=== PATIENT | female | born 1995 | race Hispanic/Latino ===

== ENCOUNTER 2017-01-11 15:37 | Inpatient (IN) | payer OTHER ==
--- NOTE | 2017-01-11 15:54 | ED PDOC ---
Arrival/HPI - General Time Seen by Provider: 01/11/17 15:45 Historian: Patient - History of Present Illness Narrative History of Present Illness (Text): 01/11/17 15:45 Renetta Maldonado is a 21 year old female, who is brought into the emergency department via EMS, due to an intentional overdose prior to arrival. 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 Patient reports she received that Xanax from a friend and admits to drinking three glasses of wine along with the intake of Xanax. Currently patient denies any chest pain, shortness of breath, nausea, vomiting, diarrhea, abdominal pain, dizziness, or other complaints. PMD: Time/Duration: Prior to Arrival (30 minutes) Symptom Onset: Sudden Symptom Course: Unchanged Activities at Onset: Emotional Upset Context: Home Past Medical History - Provider Review Nursing Documentation Reviewed: Yes Family/Social History - Physician Review Nursing Documentation Reviewed: Yes Family/Social History: Unknown Family HX Allergies/Home Meds Allergies/Adverse Reactions: Allergies No Known Allergies Allergy (Verified 01/11/17 16:10) Home Medications: Home Meds Medication Instructions Recorded Confirmed No Known Home Med 01/11/17 01/11/17 Review of Systems - Review of Systems Systems not reviewed;Unavailable: Intoxicated (Intentional overdose. Intake of 8 Xanax and 3 glasses of wine.) Constitutional: absent: Fevers Respiratory: absent: SOB Cardiovascular: absent: Chest Pain Gastrointestinal: absent: Abdominal Pain, Diarrhea, Vomiting Genitourinary Female: absent: Dysuria, Frequency Neurological: absent: Headache, Dizziness Psychiatric: Suicidal Ideation Physical Exam Vital Signs Reviewed: Yes Vital Signs Temp Pulse Resp BP Pulse Ox 01/11/17 21:47 78 16 93/59 L 100 01/11/17 19:09 78 20 90/55 L 100 01/11/17 17:50 75 16 96/56 L 97 01/11/17 15:58 97.7 F 92 H 20 107/59 L 100 Temperature: Afebrile Blood Pressure: Normal Pulse: Tachycardic Respiratory Rate: Normal Appearance: Positive for: Well-Appearing, Non-Toxic, Comfortable Pain Distress: None Mental Status: Positive for: Alert and Oriented X 3 - Systems Exam Head: Present: Atraumatic, Normocephalic Pupils: Present: Other (5mm non-reactive) Extroacular Muscles: Present: EOMI Conjunctiva: Present: Normal Mouth: Present: Moist Mucous Membranes Neck: Present: Normal Range of Motion Respiratory/Chest: Present: Clear to Auscultation, Good Air Exchange. No: Respiratory Distress, Accessory Muscle Use Cardiovascular: Present: Regular Rate and Rhythm, Normal S1, S2. No: Murmurs Abdomen: Present: Normal Bowel Sounds. No: Tenderness, Distention, Peritoneal Signs Back: Present: Normal Inspection Upper Extremity: Present: Normal Inspection. No: Cyanosis, Edema Lower Extremity: Present: Normal Inspection. No: Edema Neurological: Present: GCS=15, CN II-XII Intact. No: Speech Normal (slurred speech) Skin: Present: Warm, Dry, Normal Color. No: Rashes Psychiatric: Present: Alert, Oriented x 3, Normal Insight, Normal Concentration , Suicidal Ideation, Other (drowsiness) Medical Decision Making ED Course and Treatment: 01/11/17 15:45 Impression: 21 year old female with emotional upset and SI. Admits to taking 8 Xanax and 3 glasses of ETOH (wine) Plan: -- EKG -- Chest X-ray -- Labs -- Urinalysis -- Reassess and disposition Progress Notes: EKG: Ordered, reviewed, and independently interpreted the EKG. Rate : 92 BPM Rhythm : NSR Interpretation : T-wave inversion and anterior leads. Comparison : No previous EKG for comparison. 01/11/17 17:58 Patient is medically cleared for psych evaluation. Alcohol level mildly elevated. BP stable. Patient not complaining go dizziness or lightheadedness. 01/11/17 22:36 Patient was accepted to Psych and voluntarily signed in. Dr. Lu Child accepted the case. - Lab Interpretations Lab Results: 01/11/17 16:12 01/11/17 16:12 Lab Results 01/11/17 16:12: Alcohol, Quantitative 37 H 01/11/17 16:12: Salicylates < 1 L, Acetaminophen < 10.0 L 01/11/17 16:12: Sodium 141, Potassium 3.7, Chloride 106, Carbon Dioxide 23, Anion Gap 16, BUN 11, Creatinine 0.6, Est GFR ( Amer) > 60, Est GFR (Non- Af Amer) > 60, Random Glucose 76, Calcium 9.3, Total Bilirubin 1.1, AST 27, ALT 20, Alkaline Phosphatase 46, Total Protein 8.0, Albumin 4.6, Globulin 3.3, Albumin/Globulin Ratio 1.4 01/11/17 16:12: WBC 5.6, RBC 4.75, Hgb 13.8, Hct 38.7, MCV 81.5, MCH 29.1, MCHC 35.7, RDW 12.6, Plt Count 255, MPV 8.9, Gran % 61.1, Lymph % (Auto) 29.9, [place] % (Auto) 6.8 H, Eos % (Auto) 1.8, Baso % (Auto) 0.4, Gran # 3.41, Lymph # 1.7, [place] # 0.4, Eos # 0.1, Baso # 0.02 - RAD Interpretation Radiology Orders: 01/11/17 15:55 CHEST PORTABLE [RAD] Stat - EKG Interpretation Interpreted by ED Physician: Yes Type: 12 lead EKG - Medication Orders Current Medication Orders: Discontinued Medications Sodium Chloride (Sodium Chloride 0.9%) 1,000 mls @ 999 mls/hr IV .Q1H1M STA Stop: 01/11/17 17:33 Last Admin: 01/11/17 17:05 Dose: 999 mls/hr Sodium Chloride (Sodium Chloride 0.9%) 1,000 mls @ 999 mls/hr IV .Q1H1M STA Stop: 01/11/17 21:47 Last Admin: 01/11/17 20:54 Dose: 999 mls/hr - Scribe Statement The provider has reviewed the documentation as recorded by the Scribe 01/11/2017 Rema Kan Provider Scribe Attestation: All medical record entries made by the Scribe were at my direction and personally dictated by me. I have reviewed the chart and agree that the record accurately reflects my personal performance of the history, physical exam, medical decision making, and the department course for this patient. I have also personally directed, reviewed, and agree with the discharge instructions and disposition. Disposition/Present on Arrival - Present on Arrival Any Indicators Present on Arrival: No - Disposition Have Diagnosis and Disposition been Completed?: Yes Diagnosis: Suicide attempt Disposition: HOSPITALIZED Disposition Time: 22:37 Patient Plan: Admission Condition: FAIR Referrals: Laron Landis MD [Primary Care Provider] - Follow up with primary
[2017-01-11 15:55] VITALS: BMI 23.3
[2017-01-11] MEDS ORDERED: Sodium Chloride 0.9% 1,000 ML IV STA ×2 (16:33→20:47)
[2017-01-11 16:41] LABS: BASO # 0.02 K/mm3 (0.0-2.0); BASO % 0.4 % (0.0-3.0); EOS # 0.1 (0.0-0.7); EOS % 1.8 % (1.5-5.0); GRAN # 3.41 (1.4-6.5); GRAN % 61.1 % (50.0-68.0); HEMATOCRIT 38.7 % (36.0-48.0); LYMPH # 1.7 (1.2-3.4); LYMPH % 29.9 % (22.0-35.0); MEAN CELL VOLUME 81.5 fl (80.0-105.0); MEAN CORPUSCULAR HEMOGLOBIN 29.1 pg (25.0-35.0); MEAN CORPUSCULAR HGB CONC 35.7 g/dl (31.0-37.0); MEAN PLATELET VOLUME 8.9 fl (7.0-11.0); MONO # 0.4 (0.1-0.6); MONO % 6.8 % (1.0-6.0); RED CELL DISTRIBUTION WIDTH 12.6 % (11.5-14.5); WHITE BLOOD COUNT 5.6 10^3/ul (4.5-11.0)
[2017-01-11 17:24] LABS: ALB/GLOB RATIO 1.4 (1.1-1.8); ALKALINE PHOSPHATASE 46 U/L (38-126); ALT/SGPT 20 U/L (7-56); AST/SGOT 27 U/L (14-36); BILIRUBIN,TOTAL 1.1 mg/dL (0.2-1.3); BLOOD UREA NITROGEN 11 mg/dL (7-21); CALCIUM 9.3 mg/dL (8.4-10.5); CARBON DIOXIDE 23 mmol/L (21-33); CHLORIDE 106 mmol/L (95-110); GFR AFRICAN-AMERICAN > 60; GLUCOSE,RANDOM 76 mg/dL (70-110); POTASSIUM 3.7 mmol/L (3.6-5.0); SODIUM 141 mmol/L (132-148)
--- NOTE | 2017-01-11 17:46 | CARD ---
APPROVED REPORT EKG Measurement Heart [id number] <Conclusion> Normal sinus rhythm Possible Left atrial enlargement Nonspecific T wave abnormality Prolonged QT Abnormal ECG
[2017-01-11 23:24] LABS: PH,URINE 5.5 (4.7-8.0); URINE BILIRUBIN NEGATIVE (NEGATIVE); URINE BLOOD NEGATIVE (NEGATIVE); URINE GLUCOSE (UA) NEGATIVE (NEGATIVE); URINE KETONE NEGATIVE (NEGATIVE); URINE LEUKOCYTE ESTERASE SMALL Leu/uL (NEGATIVE); URINE PROTEIN NEGATIVE mg/dL (<30 mg/dL); URINE UROBILINOGEN 0.2 E.U./dL (<1 E.U./dL)
[2017-01-11 23:26] LABS: URINE APPEARANCE SLIGHT-CLOUDY (CLEAR); URINE COLOR YELLOW (YELLOW)
[2017-01-11 23:46] LABS: URINE BACTERIA MOD (NEG); URINE RBC 0 - 2 /hpf (0-2)
[2017-01-11] MEDS ORDERED: Magnesium Hydroxide Susp 30 ml UD PO PRN (23:47)
[2017-01-11] MEDS ORDERED: Alum-Mag Hydrox-Simethicone Susp (30 mL) PO PRN (23:47)
--- NOTE | 2017-01-12 01:41 | PCM.BM ---
<Ruslan Yuan - Last Filed: 01/12/17 01:37> Treatment Plan Problems - Problems identified on initial assessmt Suicidal Ideation Date Initiated: 01/11/17 Time Initiated: 01:38 Assessment reference: NA Status: Active Anxiety Date Initiated: 01/11/17 Time Initiated: 01:38 Assessment reference: NA Status: Active Hopelessness/Helplessness Date Initiated: 01/11/17 Time Initiated: 01:38 Assessment reference: NA Status: Active Feelings of Worthlessness Date Initiated: 01/11/17 Time Initiated: 01:39 Assessment reference: NA Status: Active Ineffective Coping Date Initiated: 01/11/17 Time Initiated: 01:39 Assessment reference: NA Status: Active Treatment assets and liabiliti Patient Assests: cooperative, educated, insightful, physically healthy, good support system, cognitively intact Patient Liabilities: relationship conflicts - Milieu Protocol Maintain good personal hygiene: daily Encourage regular showers, daily Remind patient to perform daily oral care, daily Assist patient to perform ADL's Conduct patient checks and document Observation sheet: Q15 minutes Maintain personal safety: every shift Educate patient to report safety concerns to staff, every shift Monitor environment for contraband/sharps Medication safety: Monitor for expected outcome, potential side effects: every shift, Assess barriers to learning: every shift, Assess readiness for medication education: every shift Discharge/Continuing Care - Education Needs Education Needs: Patient Medication, Patient Diagnosis/Disease Process, Patient Coping Skills, Patient Health Practices/Safety, Patient Aftercare Safety Plan - Discharge Discharge Criteria: Tolerates medication w/o severe side effects, Free of Suicidal thoughts <Lu Child - Last Filed: 01/12/17 10:33> - Diagnosis (1) MDD (major depressive disorder) Status: Acute Interventions: 01/12/17 09:11 Psychoeducation Psychopharmacology/adjustment of medications as needed/ monitoring possible side effects Evaluate pt on daily basis Compliance with medications and follow up appointments Suicide and homicide risk assessment and prevention Relapse prevention Reduction of symptoms Improve functional status Family involvement Supportive therapy (2) Anxiety disorder, unspecified Status: Acute Interventions: 01/12/17 09:12 Psychoeducation Psychopharmacology/adjustment of medications as needed/ monitoring possible side effects Evaluate pt on daily basis Compliance with medications and follow up appointments Suicide and homicide risk assessment and prevention, coping strategies, safety plan Reduction of symptoms Relaxation techniques and breathing exercises Improve functional status Family involvement (3) Adjustment disorder Status: Acute Interventions: 01/12/17 09:13 Psychoeducation Psychopharmacology/adjustment of medications as needed/ monitoring possible side effects Evaluate pt on daily basis Compliance with medications and follow up appointments Suicide and homicide risk assessment and prevention Reduction of symptoms Improve functional status Family involvement <Cleo Lopez - Last Filed: 01/12/17 15:12>
[2017-01-12 06:47] LABS: BASO # 0.03 K/mm3 (0.0-2.0); BASO % 0.5 % (0.0-3.0); EOS # 0.2 (0.0-0.7); EOS % 2.4 % (1.5-5.0); GRAN # 3.59 (1.4-6.5); GRAN % 58.5 % (50.0-68.0); HEMATOCRIT 36.7 % (36.0-48.0); LYMPH # 1.8 (1.2-3.4); MEAN CORPUSCULAR HEMOGLOBIN 29.2 pg (25.0-35.0); MEAN CORPUSCULAR HGB CONC 35.1 g/dl (31.0-37.0); MEAN PLATELET VOLUME 8.8 fl (7.0-11.0); MONO # 0.5 (0.1-0.6); MONO % 8.6 % (1.0-6.0); RED CELL DISTRIBUTION WIDTH 12.9 % (11.5-14.5); WHITE BLOOD COUNT 6.1 10^3/ul (4.5-11.0)
[2017-01-12 06:57] VITALS: O2SAT 98
[2017-01-12 07:01] LABS: ALB/GLOB RATIO 1.3 (1.1-1.8); ALKALINE PHOSPHATASE 47 U/L (38-126); ALT/SGPT 21 U/L (7-56); AST/SGOT 19 U/L (14-36); BILIRUBIN,TOTAL 1.3 mg/dL (0.2-1.3); BLOOD UREA NITROGEN 12 mg/dL (7-21); CALCIUM 9.1 mg/dL (8.4-10.5); CARBON DIOXIDE 23 mmol/L (21-33); CHLORIDE 106 mmol/L (95-110); CHOLESTEROL 161 mg/dL (130-200); GFR AFRICAN-AMERICAN > 60; GLUCOSE,FASTING 74 mg/dL (65-110); GLUCOSE,RANDOM 74 mg/dL (70-110); POTASSIUM 3.8 mmol/L (3.6-5.0); SODIUM 140 mmol/L (132-148); TOTAL PROTEIN 7.1 g/dL (5.8-8.3)
--- NOTE | 2017-01-12 12:04 | CP.PCM.CON ---
<Papi Cui - Last Filed: 01/12/17 15:29> History of Present Illness - History of Present Illness History of Present Illness: This is a 21 yr. old female with no past medical history who presented to the [facility] after taking 8 Xanax and drinking three glasses of wine after an argument with her boyfriend. She states that she has been in a difficult relationship with him for quite some time. She also reports anxiety in conjunction with taking the pills and drinking the red wine. She later stated that she didn't intend to end her life but it was more of a "cry for help " in regards to the relationship with her boyfriend. Currently the patient denies any SI, HI, AH, VH, chest pain, shortness of breath, nausea, vomiting, lightheadedness, dizziness, syncopal episodes, changes in vision, fatigue or any other complaints. Past surgical hx: Denies one Past hospital hx: Denies one Medications: Denies taking any Allergies: NKDA Social hx:Patient reports drinking on the weekends socially with friends. Patient reports smoking infrequently. Patient denies any illicit drug use. Patient does report a difficult relationship with her boyfriend. Review of Systems - Constitutional Constitutional: absent: Chills, Fever, Malaise, Night Sweats - EENT Eyes: absent: Blurred Vision, Discharge, Dry Eye, Loss of Vision Ears: absent: Decreased Hearing, Ear Pain, Dizziness Nose/Mouth/Throat: absent: Nose Pain, Change in Voice, Dry Mouth, Hoarsness, Lip Swelling, Mouth Lesions - Cardiovascular Cardiovascular: absent: Chest Pain, Irregular Heart Rhythm, Lightheadedness, Orthopnea, Rapid Heart Rate, Syncope - Respiratory Respiratory: absent: Cough, Dyspnea, Hemoptysis, Wheezing, Chest Congestion - Gastrointestinal Gastrointestinal: absent: Abdominal Pain, Constipation, Cramping, Diarrhea, Melena, Nausea - Genitourinary Genitourinary: absent: Change in Urinary Stream, Difficulty Urinating - Musculoskeletal Musculoskeletal: absent: Abnormal Gait, Joint Swelling, Myalgias, Neck Pain - Integumentary Integumentary: absent: Bleeding Lesions, Lesions, New Lesions, Swelling - Neurological Neurological: absent: Dizziness, Numbness, Headaches, Syncope, Tremor, Vertigo, Weakness - Psychiatric Psychiatric: Anxiety. absent: Hallucinations, Homicidal Ideation, Mood Swings, Suicidal Ideation - Endocrine Endocrine: absent: Change in Body Appearance, Fatigue, Palpitations Past Patient History - Past Social History Smoking Status: Current Some Days Smoker - CARDIAC Hx Cardiac Disorders: No Hx Hypertension: No - PULMONARY Hx Tuberculosis: No - NEUROLOGICAL HX Cerebrovascular Accident: No Hx Seizures: No - HEMATOLOGICAL/ONCOLOGICAL Hx Cancer: No Hx Human Immunodeficiency Virus (HIV): No - GENITOURINARY/GYNECOLOGICAL Hx Sexually Transmitted Disorders: No - PSYCHIATRIC Hx Substance Use: Yes (Cocaine, Aylin 3 months ago) - SURGICAL HISTORY Hx Surgeries: Yes Other/Comment: Skin grafting behind right ear - ANESTHESIA Hx Anesthesia: No Meds Allergies/Adverse Reactions: Allergies Allergy/AdvReac Type Severity Reaction Status Date / Time No Known Allergies Allergy Verified 01/12/17 02:25 - Medications Medications: Current Medications Acetaminophen (Tylenol 325mg Tab) 650 mg PO Q4 PRN PRN Reason: Pain, moderate (4-7) Al Hydrox/Mg Hydrox/Simethicone (Maalox Plus 30 Ml) 30 ml PO DAILY PRN PRN Reason: Upset Stomach Citalopram Hydrobromide (Celexa) 10 mg PO DAILY [facility] Last Admin: 01/12/17 09:52 Dose: 10 mg Lorazepam (Ativan) 1 mg PO AMHS NEDRA PRN Reason: Protocol Last Admin: 01/12/17 09:52 Dose: 1 mg Magnesium Hydroxide (Milk Of Magnesia) 30 ml PO DAILY PRN PRN Reason: Constipation Zaleplon (Sonata) 5 mg PO HS PRN PRN Reason: Insomnia Physical Exam - Head Exam Head Exam: ATRAUMATIC, NORMAL INSPECTION, NORMOCEPHALIC - Eye Exam Eye Exam: EOMI, Normal appearance, PERRL Pupil Exam: NORMAL ACCOMODATION, PERRL - ENT Exam ENT Exam: Mucous Membranes Moist, Normal Exam - Neck Exam Neck exam: Positive for: Normal Inspection - Respiratory Exam Respiratory Exam: Clear to Auscultation Bilateral, NORMAL BREATHING PATTERN. absent: Accessory Muscle Use, Chest Wall Tenderness, Respiratory Distress - Cardiovascular Exam Cardiovascular Exam: REGULAR RHYTHM, RRR, +S1, +S2. absent: JVD, Rubs - GI/Abdominal Exam GI & Abdominal Exam: Normal Bowel Sounds, Soft. absent: Mass, Rigid - Back Exam Back exam: NORMAL INSPECTION. absent: paraspinal tenderness - Neurological Exam Neurological exam: Alert, CN II-XII Intact, Oriented x3 - Psychiatric Exam Psychiatric exam: Normal Affect, Normal Mood (Patient denies HI, SI. ) - Skin Skin Exam: Dry, Intact, Normal Color Results - Vital Signs Recent Vital Signs: Last Vital Signs Temp 98.3 F 01/12/17 06:56 Pulse 65 01/12/17 06:56 Resp 20 01/12/17 06:56 BP 98/53 L 01/12/17 06:56 Pulse Ox 98 01/12/17 06:56 - Labs Result Diagrams: 01/12/17 06:20 01/12/17 06:20 Labs: Laboratory Results - last 24 hr 01/11/17 01/11/17 01/12/17 23:14 23:14 06:20 WBC 6.1 RBC 4.42 Hgb 12.9 Hct 36.7 MCV 83.0 MCH 29.2 MCHC 35.1 RDW 12.9 Plt Count 238 MPV 8.8 Gran % 58.5 Lymph % (Auto) 30.0 [place] % (Auto) 8.6 H Eos % (Auto) 2.4 Baso % (Auto) 0.5 Gran # 3.59 Lymph # 1.8 [place] # 0.5 Eos # 0.2 Baso # 0.03 Sodium Potassium Chloride Carbon Dioxide Anion Gap BUN Creatinine Est GFR ( Amer) Est GFR (Non-Af Amer) Random Glucose Fasting Glucose Calcium Total Bilirubin AST ALT Alkaline Phosphatase Total Protein Albumin Globulin Albumin/Globulin Ratio Triglycerides Cholesterol LDL Cholesterol Direct HDL Cholesterol TSH 3rd Generation Urine Color Yellow Urine Appearance Slight-cloudy Urine pH 5.5 Ur Specific [place] 1.025 Urine Protein Negative Urine Glucose (UA) Negative Urine Ketones Negative Urine Blood Negative Urine Nitrate Negative Urine Bilirubin Negative Urine Urobilinogen 0.2 Ur Leukocyte Esterase Small H Urine RBC 0 - 2 Urine WBC 5 - 10 Ur Epithelial Cells 1 - 3 Urine Bacteria Mod Urine Opiates Screen Negative Urine Methadone Screen Negative Ur Barbiturates Screen Negative Ur Phencyclidine Scrn Negative Ur Amphetamines Screen Negative U Benzodiazepines Scrn Positive H U Oth Cocaine Metabols Negative U Cannabinoids Screen Negative 01/12/17 01/12/17 06:20 06:20 WBC RBC Hgb Hct MCV MCH MCHC RDW Plt Count MPV Gran % Lymph % (Auto) [place] % (Auto) Eos % (Auto) Baso % (Auto) Gran # Lymph # [place] # Eos # Baso # Sodium 140 Potassium 3.8 Chloride 106 Carbon Dioxide 23 Anion Gap 15 BUN 12 Creatinine 0.6 Est GFR ( Amer) > 60 Est GFR (Non-Af Amer) > 60 Random Glucose 74 Fasting Glucose 74 Calcium 9.1 Total Bilirubin 1.3 AST 19 ALT 21 Alkaline Phosphatase 47 Total Protein 7.1 Albumin 4.0 Globulin 3.1 Albumin/Globulin Ratio 1.3 Triglycerides 81 Cholesterol 161 LDL Cholesterol Direct 94 HDL Cholesterol 51 TSH 3rd Generation 1.62 Urine Color Urine Appearance Urine pH Ur Specific [place] Urine Protein Urine Glucose (UA) Urine Ketones Urine Blood Urine Nitrate Urine Bilirubin Urine Urobilinogen Ur Leukocyte Esterase Urine RBC Urine WBC Ur Epithelial Cells Urine Bacteria Urine Opiates Screen Urine Methadone Screen Ur Barbiturates Screen Ur Phencyclidine Scrn Ur Amphetamines Screen U Benzodiazepines Scrn U Oth Cocaine Metabols U Cannabinoids Screen Assessment & Plan - Assessment and Plan (Free Text) Assessment: Smoking -Patient counseled on smoking cessation and the benefits she would gain from no longer smoking. Anxiety -Told her to follow up with Dr. Leigh and discuss the a management plan with her on dealing with her anxiety level. Discussed with patient to follow up with her Primary Care Physician Dr. Landis for further evaluation. Patient was medically cleared by us. Her vitals are stable, she reports no complaints, her physical exam was benign , and her lab work was unremarkable. This patient is cleared by medicine and we are signing off. - Date & Time Date: 01/12/17 Time: 12:13 <Uriel Hayes - Last Filed: 01/12/17 17:42> Meds - Medications Medications: Current Medications Acetaminophen (Tylenol 325mg Tab) 650 mg PO Q4 PRN PRN Reason: Pain, moderate (4-7) Al Hydrox/Mg Hydrox/Simethicone (Maalox Plus 30 Ml) 30 ml PO DAILY PRN PRN Reason: Upset Stomach Lorazepam (Ativan) 1 mg PO BID PRN; Protocol PRN Reason: Anxiety Magnesium Hydroxide (Milk Of Magnesia) 30 ml PO DAILY PRN PRN Reason: Constipation Multivitamins/Minerals (Therapeutic-M Tab) 1 tab PO 0800 NEDRA Paroxetine HCl (Paxil) 10 mg PO HS NEDRA Zaleplon (Sonata) 5 mg PO HS PRN PRN Reason: Insomnia Results - Vital Signs Recent Vital Signs: Last Vital Signs Temp 98.3 F 01/12/17 06:56 Pulse 65 01/12/17 06:56 Resp 20 01/12/17 06:56 BP 98/53 L 01/12/17 06:56 Pulse Ox 98 01/12/17 06:56 - Labs Result Diagrams: 01/12/17 06:20 01/12/17 06:20 Labs: Laboratory Results - last 24 hr 01/11/17 01/11/17 01/12/17 23:14 23:14 06:20 WBC 6.1 RBC 4.42 Hgb 12.9 Hct 36.7 MCV 83.0 MCH 29.2 MCHC 35.1 RDW 12.9 Plt Count 238 MPV 8.8 Gran % 58.5 Lymph % (Auto) 30.0 [place] % (Auto) 8.6 H Eos % (Auto) 2.4 Baso % (Auto) 0.5 Gran # 3.59 Lymph # 1.8 [place] # 0.5 Eos # 0.2 Baso # 0.03 Sodium Potassium Chloride Carbon Dioxide Anion Gap BUN Creatinine Est GFR ( Amer) Est GFR (Non-Af Amer) Random Glucose Fasting Glucose Calcium Total Bilirubin AST ALT Alkaline Phosphatase Total Protein Albumin Globulin Albumin/Globulin Ratio Triglycerides Cholesterol LDL Cholesterol Direct HDL Cholesterol TSH 3rd Generation Urine Color Yellow Urine Appearance Slight-cloudy Urine pH 5.5 Ur Specific [place] 1.025 Urine Protein Negative Urine Glucose (UA) Negative Urine Ketones Negative Urine Blood Negative Urine Nitrate Negative Urine Bilirubin Negative Urine Urobilinogen 0.2 Ur Leukocyte Esterase Small H Urine RBC 0 - 2 Urine WBC 5 - 10 Ur Epithelial Cells 1 - 3 Urine Bacteria Mod Urine Opiates Screen Negative Urine Methadone Screen Negative Ur Barbiturates Screen Negative Ur Phencyclidine Scrn Negative Ur Amphetamines Screen Negative U Benzodiazepines Scrn Positive H U Oth Cocaine Metabols Negative U Cannabinoids Screen Negative RPR 01/12/17 01/12/17 01/12/17 06:20 06:20 06:20 WBC RBC Hgb Hct MCV MCH MCHC RDW Plt Count MPV Gran % Lymph % (Auto) [place] % (Auto) Eos % (Auto) Baso % (Auto) Gran # Lymph # [place] # Eos # Baso # Sodium 140 Potassium 3.8 Chloride 106 Carbon Dioxide 23 Anion Gap 15 BUN 12 Creatinine 0.6 Est GFR ( Amer) > 60 Est GFR (Non-Af Amer) > 60 Random Glucose 74 Fasting Glucose 74 Calcium 9.1 Total Bilirubin 1.3 AST 19 ALT 21 Alkaline Phosphatase 47 Total Protein 7.1 Albumin 4.0 Globulin 3.1 Albumin/Globulin Ratio 1.3 Triglycerides 81 Cholesterol 161 LDL Cholesterol Direct 94 HDL Cholesterol 51 TSH 3rd Generation 1.62 Urine Color Urine Appearance Urine pH Ur Specific [place] Urine Protein Urine Glucose (UA) Urine Ketones Urine Blood Urine Nitrate Urine Bilirubin Urine Urobilinogen Ur Leukocyte Esterase Urine RBC Urine WBC Ur Epithelial Cells Urine Bacteria Urine Opiates Screen Urine Methadone Screen Ur Barbiturates Screen Ur Phencyclidine Scrn Ur Amphetamines Screen U Benzodiazepines Scrn U Oth Cocaine Metabols U Cannabinoids Screen RPR Nonreactive Attending/Attestation - Attestation I have personally seen and examined this patient.: Yes I have fully participated in the care of the patient.: Yes I have reviewed all pertinent clinical information: Yes Notes (Text): 01/12/17 17:40 attending note; Patient seen and examined with resident in the psychiatric floor. Patient is a 21-year-old female with no significant past medical history as admitted with anxiety and suicidal ideation. Patient is currently alert and awake. Denies any suicidal ideation. active smoking; smoking cessation is strongly advised. Refused NicoDerm patch. Alcohol abuse; complete alcohol cessation is strongly advised. Labs reviewed. Patient is medically stable. Advised to follow-up with PMD upon discharge. Please reconsult as needed. Thank you for the courtesy of this consultation.
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
--- NOTE | 2017-01-13 08:33 | PCM.PYCHPN ---
Psychiatric Progress Note - Psychiatric Progress Note Patient seen today, length of contact: 25 min Patient Chief Complaint: "better" Problems Identified/Issues Discussed: I reviewed assessment and recent notes. I met with patient at bedside. Patient is groomed, calm and cooperative. She is well oriented to circumstances. Reports she is feeling better since admission. Affect is demonstrating appropriate range and reactivity. Patient feels hopeful and denies wishes or suicidal thoughts. Patient continues to deny hallucinations or paranoia. Her thought process is clear and coherent. Responses are relevant to questioning and she does not appear to be responding to internal stimuli. Patient denies any new discomfort or pain. Tolerating medications and slept well last night. Staff notes indicate that patient has been cooperative and in control. There were no behavioral issues overnight. Diagnostic Results: r/o mdd r/o adjustment d/o with depressed and anxious mood r/o PTSD Medication Change: No Medical Record Reviewed: Yes Mental Status Examination - Cognitive Function Orientation: Person Attention: WNL Concentration: WNL Association: WNL Fund of Knowledge: WNL - Mood Mood: Depressed ("better"), Anxious - Affect Affect: Other (appropriate range and reactivity) - Speech Speech: Appropriate - Formal Thought Process Formal Thought Process: No Impairment - Suicidal Ideation Suicidal Ideation: No - Homicidal Ideation Homicidal Ideation: No Goal/Treatment Plan - Goal/Treatment Plan Progress Toward Problem(s) and Goals/Treatment Plan: * c/w current tx and plan * No new weekend labs thus far * Vitals reviewed and noted below: Selected Entries 01/12/17 01/12/17 06:56 20:30 Temperature 98.3 F Pulse Rate 65 57 L Respiratory 20 Rate Blood Pressure 98/53 L 122/79
[2017-01-13] MEDS: Multivitamin With Minerals Tab PO SCH (08:47)
[2017-01-14 07:23] VITALS: BP 114/67; PULSE 59; RESP 18; TEMP 98.2
[2017-01-14] MEDS: Multivitamin With Minerals Tab PO SCH (08:30)
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
== END 2017-01-14 10:04 | disposition left against medical advice (07) | DRG 881 ==
LOC: ED 15:37 → PSYC 22:35
PROVIDERS: ADMIT Psychiatry & Neurology Psychiatry; ATTEND Psychiatry & Neurology Psychiatry
DX: F32.9 Major depressive disorder, single episode, unspecified (principal); T42.4X2A Poisoning by benzodiazepines, intentional self-harm, initial encounter; F10.10 Alcohol abuse, uncomplicated; F43.22 Adjustment disorder with anxiety; G47.00 Insomnia, unspecified; F17.210 Nicotine dependence, cigarettes, uncomplicated; Y92.9 Unspecified place or not applicable